=== PATIENT | male | born 1970 | race Hispanic/Latino ===

== ENCOUNTER 2016-12-19 14:49 | Emergency (ER) | payer SELFPAY ==
[~2016-12-19] VITALS: Ht 160 cm; Wt 72.7 kg
[~2016-12-19 14:49] MED LIST: ANXIETY MED PO; METF1000 PO; OMPR20CCR PO
[2016-12-19 14:55] VITALS: BP 120/78; PULSE 92; RESP 14; O2SAT 98
[2016-12-19 15:26] LABS: BASOPHILS % (AUTO) 0.5 % (0-3); EOSINOPHILS % (AUTO) 4.1 % (0-5); MONOCYTES % (AUTO) 5.2 % (4-12); Mean Corpuscular Hemoglobin 30.8 pg (27.0-35.0); Mean Corpuscular Volume 84.8 fL (81-100); NEUTROPHILS % (AUTO) 53.9 % (40-74); Platelet Count 340 bil/L (150-400)
--- NOTE | 2016-12-19 15:26 | ED.REPORT ---
HPI-Chest Pain 40 and Over Date of Service Dec 19, 2016 ED Provider: Dale Almodovar MD The patient is a [place] speaking 46 year old male w/ a hx of DM type II, hyperlipidemia, alcohol and meth abuse who presents to the ED due to sudden onset, 07/12, chest pain that began 4-5 hours ago. The patient's roommate translates for the patient. The pain woke him up from his sleep and is described as, "achy." He saw his PCP, Dr. Douglas Russell, for similar symptoms in the past, at which time the pain was attributed to poor blood sugar level monitoring. Today, he also c/o SOB. Pt last consumed alcohol 2 hrs [employer] but his speech is clear at the ED. Previous to this episode, he had been sober for 4 months, since . He was feeling very anxious today and decided to have a drink. Pt reports that his last methamphetamine use was 8 months ago. Nursing Notes Stated Complaint: CHEST PAIN Chief Complaint: Dysrhythmia/Cardiac Nursing Notes Reviewed: Yes Allergies: Coded Allergies: Penicillins (Unverified Allergy, Unknown, 12/19/16) Scheduled Clotrimazole 1% (Clotrimazole 1%) 30 Ml Solution 1 APPLIC TOPICAL BID Insuln Asp Prt/Insulin Aspart (NovoLOG 70/30 U100 Insulin Flexpen) 100 Unit/Ml Unit 10 UNIT SUBQ BID Lovastatin (Lovastatin) 40 Mg Tablet 40 MG PO HS Metformin HCl (Metformin HCl ER) 1,000 Mg [id number] 1,000 MG PO BID Metformin-Expunged Drug, Do Not Renew! 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 Arrived By: Walk-in Sudden in Onset?: Yes Onset Occurred: 1 - 4 hours ago Context of Onset: Sleeping Symptom Duration: Since onset Location: : Chest left Radiation: : Does not radiate Severity: Current: Mild Recent Healthcare: No recent hospitalization Similar Sx Previous: Yes Past Medical History Past Medical History Reports: Diabetes mellitus, Hyperlipidemia Past Surgical History denies Smoking History Current Every Day Smoker Social History Alcohol Use: "Social" Drug Use: In recovery, Meth Other Social History: Good social support, , Local resident Ambulatory Status Independent Review of Systems Review of Systems Note: smells of EtOH speech is clear Respiratory: Reports: Shortness of breath Cardiovascular: Reports: Chest pain Complete sys rev & neg: except as marked. Physical Exam Physical Exam Notes: Initial Vital Signs Vital Signs (First) Date Time Temp Pulse Resp B/P Pulse Ox O2 Delivery O2 Flow Rate FiO2 12/19/16 14:55 36.0 92 14 120/78 98 Room Air Initial VS: Reviewed Head / Eyes: Atraumatic, Normocephalic, PERRL ENT: Mucous membranes moist, Conjunctiva normal, No scleral icterus Neck: Supple, Non-tender, Full range of motion Back: No CVA tenderness Extremities: Vascular intact, Neuro intact, No swelling, No tenderness Skin: Warm, Dry, No cyanosis General/Constitutional: Awake, Cooperative alochol on breath speech is clear Respiratory / Chest: Atraumatic, Breath sounds NL, Breath sounds = bilat, No respiratory distress, No rales, No rhonchi, No wheezing mild chest wall tenderness Cardiovascular: Heart rate NL, Regular rhythm, Heart sounds NL, No gallop, No murmurs, No rubs Abdomen: BS normoactive mild epigastric tenderness Interpretation & Diagnostics Lab Results Interpretation Result Diagram: 12/19/16 1500 12/19/16 1500 Test 12/19/16 15:00 12/19/16 17:12 White Blood Count 13.1th/mm3 (3.8-10.1) Red Blood Count 5.52mil/mm3 (4.40-5.80) Hemoglobin 17.0g/dL (13.8-17.2) Hematocrit 46.8% (41.0-50.0) Mean Corpuscular Volume 84.8fL (81-100) Mean Corpuscular Hemoglobin 30.8pg (27.0-35.0) Mean Corpuscular Hemoglobin Concent 36.3% (32.0-37.0) Red Cell Distribution Width 12.3% (12.3-15.4) Platelet Count 340bil/L (150-400) Neutrophils (%) (Auto) 53.9% (40-74) Lymphocytes (%) (Auto) 36.1% (14-46) Monocytes (%) (Auto) 5.2% (4-12) Eosinophils (%) (Auto) 4.1% (0-5) Basophils (%) (Auto) 0.5% (0-3) Sodium Level 138mEq/L (134-144) Potassium Level 4.2mEq/L (3.5-5.2) Chloride Level 100mEq/L (97-108) Carbon Dioxide Level 17mmol/L (18-29) Blood Urea Nitrogen 12mg/dL (6-24) Creatinine 0.80mg/dL (0.76-1.27) Estimat Glomerular Filtration Rate 111mL/min (>59) Glucose Level 217mg/dL (60-99) Calcium Level 9.1mg/dL (8.5-10.1) Magnesium Level 2.2mg/dL (1.6-2.6) Total Bilirubin 0.3mg/dL (0.0-1.2) Aspartate Amino Transf (AST/SGOT) 24U/L (0-50) Alanine Aminotransferase (ALT/SGPT) 30U/L (0-44) Alkaline Phosphatase 111U/L (25-150) Pro-B-Type Natriuretic Peptide 8.68pg/mL (0-121) Total Protein 7.5g/dL (6.4-8.4) Albumin 4.1g/dL (3.4-5.0) Hold Yancey Top Tube Received (Received) Alcohols 258mg/dL (0-10) Troponin T < 0.010ug/L (0.0-0.011) Lipase 28U/L (13-60) X-Ray Chest Interpretation Chest Xray Interpretation: IMPRESSION: No acute cardiopulmonary disease. Dictated by: Olivia Zavala M.D. on 12/19/2016 at 15:44 Approved by: Olivia Zavala M.D. on 12/19/2016 at 15:45 View: Portable Interpretation / Wet Read by: Interpret - Radiologist Re-Eval/Medical Decision Re-Evaluation/Progress Note: plan to check for pancreatitis and heart problems. Counseled Regarding: Diagnosis, Lab results, Need for follow-up, When/why to return to ED Discharge & Departure Primary Impression: Chest pain Chest pain type: other chest pain Qualified Code: R07.89 - Other chest pain Additional Impression: Alcohol intoxication Complication of substance-induced condition: uncomplicated Qualified Code: F10.120 - Alcohol abuse with intoxication, uncomplicated Disposition: Home Discharge Condition All VS Reviewed: Yes Condition: Stable Additional Instructions: Your Emergency Department evaluation included interview, examination labs, ecg and chest x-ray. No serious cause for chest pain is found. it is safe for you to go home and follow up with primary care regarding your chest pain. It is very important that you do not drink alcohol. Return to ED for increasing chest pain, shortness of breath. continue previous home medications. Referrals: Douglas Russell MD Attestation Portion of this note were transcribed by Karey Apodaca. I, Dr. Almodovar, personally performed the history, physical exam, and medical decision-making: I reviewed and confirmed the accuracy for the information in the transcribed note. Signed by: eliza Ferris, 12/19/16 1900 copies to: Douglas Russell MD, Donald L MD Dec 19, 2016 15:26 Karey Apodaca Dec 19, 2016 16:39
--- NOTE | 2016-12-19 15:47 | DRSVH ---
PROCEDURE: X-RAY CHEST ONE VIEW, PORTABLE ([id number]) INDICATIONS: Chest pain TECHNIQUE: One view of the chest was acquired. COMPARISON: [facility], , CHEST 1VW (PORTABLE), 12/19/2011, 3:32. FINDINGS: Surgical changes and devices: None. Lungs and pleura: No pleural effusions or pneumothorax. Lungs are clear. Mediastinum: Mediastinal contours appear normal. Heart size is normal. Bones and chest wall: No suspicious bony lesions. Overlying soft tissues appear unremarkable. IMPRESSION: No acute cardiopulmonary disease. Dictated by: Olivia Zavala M.D. on 12/19/2016 at 15:44 Approved by: Olivia Zavala M.D. on 12/19/2016 at 15:45
[2016-12-19 15:50] LABS: Magnesium 2.2 mg/dL (1.6-2.6)
[2016-12-19 15:55] LABS: TROPONIN T < 0.010 ug/L (0.0-0.011)
[2016-12-19] MEDS ORDERED: 0.9% Sodium Chloride 1,000 ML IV ONE (16:40)
[2016-12-19] MEDS ORDERED: CLOT30SO TOPICAL (17:15)
[2016-12-19] MEDS ORDERED: LOVA40TA PO (17:15)
[2016-12-19] MEDS ORDERED: METF-778 PO (17:15)
[2016-12-19] MEDS ORDERED: INSU3INS3 SUBQ (17:15)
[2016-12-19 17:53] LABS: Lipase 28 U/L (13-60)
[2016-12-19 17:54] LABS: TROPONIN T < 0.010 ug/L (0.0-0.011)
[2016-12-19 19:32] VITALS: BP 106/58; PULSE 91; RESP 16; O2SAT 96
== END 2016-12-19 19:37 | disposition home or self-care (01) ==
LOC: SED 14:49 → EDUNIT# 14:49 → SED 19:37
DX: R07.89 Other chest pain (principal); F10.120 Alcohol abuse with intoxication, uncomplicated; E11.9 Type 2 diabetes mellitus without complications; E78.5 Hyperlipidemia, unspecified; Z79.4 Long term (current) use of insulin; Z79.84 Long term (current) use of oral hypoglycemic drugs; F17.200 Nicotine dependence, unspecified, uncomplicated; Z88.0 Allergy status to penicillin
CPT/HCPCS: 36415; 71010; 80053; 81002; 82075; 82948; 83690; 83735; 83880; 84484; 85025; 93005; 96361; 96374; 99285; G0480; J1885; J7030

== ENCOUNTER 2017-05-07 00:07 | Emergency (ER) | payer SELFPAY ==
[~2017-05-07] VITALS: Ht 170.2 cm; Wt 77.3 kg
[~2017-05-07 00:07] MED LIST changes: -ANXIETY MED PO; +CLOT30SO TOPICAL; +INSU3INS3 SUBQ; +LOVA40TA PO; +METF-778 PO; -OMPR20CCR PO
[2017-05-07 00:12] VITALS: BP 119/70; PULSE 101; RESP 33; O2SAT 100
--- NOTE | 2017-05-07 00:33 | ED.REPORT ---
HPI-Dyspnea / Wheezing Date of Service May 07, 2017 ED Provider: Jose Selby MD A 46 year old male with a history of diabetes mellitus type II, hyperlipidemia, alcohol and meth abuse presents to the ED with dyspnea that began this afternoon. Patient reportedly contacted family after he began to experience sudden onset shortness of breath and sharp chest pain. He admits to EtOH and cocaine use this evening. His BS was recorded in the 400's this evening. Patient was recently seen in the ED in 12/2016 for similar chest pain. Nursing Notes Stated Complaint: DIFFICULTY BREATHING Chief Complaint: Respiratory Distress Nursing Notes Reviewed: Yes Allergies: Coded Allergies: Penicillins (Unverified Allergy, Unknown, 12/19/16) Scheduled Clotrimazole 1% (Clotrimazole 1%) 30 Ml Solution 1 APPLIC TOPICAL BID Insuln Asp Prt/Insulin Aspart (NovoLOG 70/30 U100 Insulin Flexpen) 100 Unit/Ml Unit 10 UNIT SUBQ BID Lovastatin (Lovastatin) 40 Mg Tablet 40 MG PO HS Metformin HCl (Metformin HCl ER) 1,000 Mg [id number] 1,000 MG PO BID Metformin-Expunged Drug, Do Not Renew! (Metformin-Expunged Drug, Do Not Renew!) 1,000 Mg Tablet 1,000 MG PO BID General Time Seen by MD: 00:21 Chief Complaint Shortness of breath Hx Obtained From: Patient Arrived By: Walk-in Sudden in Onset?: No Onset Occurred: 1 - 4 hours ago Symptom Duration: Since onset Location: : Chest left: Chest right Quality: Sharp Radiation: : Does not radiate Severity: Current: Mild Severity: Maximum: Moderate Associated with: Reports: Chest pain Pertinent Negative: Pt denies other symptoms Recent Healthcare: No recent hospitalization, Recent doctor visit Past Medical History Past Medical History Diabetes Mellitus Hyperlipidemia Past Surgical History None reported. Smoking History Current Every Day Smoker Social History Alcohol Use: 1-3 per week Drug Use: Cocaine, Meth Other Social History: Good social support, , Local resident Ambulatory Status Independent Review of Systems Respiratory: Reports: Shortness of breath Cardiovascular: Reports: Chest pain Complete sys rev & neg: except as marked. Physical Exam Initial Vital Signs Vital Signs (First) Date Time Temp Pulse Resp B/P Pulse Ox O2 Delivery O2 Flow Rate FiO2 05/07/17 00:12 36.9 101 33 119/70 100 Room Air Initial VS: Reviewed, Vital signs abnormal Head / Eyes: Atraumatic, Normocephalic, PERRL Extremities: Vascular intact, Neuro intact, No swelling, No tenderness Skin: Warm, Dry, No cyanosis Neurologic: Alert, Oriented, Nonfocal Psychiatric: Mood/affect normal, Behavior normal, Normal thought content General/Constitutional: Awake, Alert, No acute distress Neck: Atraumatic, Supple Respiratory / Chest: Atraumatic, Breath sounds NL, Breath sounds = bilat, No respiratory distress Cardiovascular: Heart rate NL, Regular rhythm, Heart sounds NL, Peripheral circulation NL, Pulses = bilaterally Abdomen: Atraumatic, Soft Interpretation & Diagnostics Lab Results Interpretation Result Diagram: 05/07/17 0114 05/07/17 0114 Test 05/07/17 00:41 05/07/17 01:14 05/07/17 01:28 Hold Yancey Top Tube Received (Received) White Blood Count 9.0th/mm3 (3.8-10.1) Red Blood Count 4.93mil/mm3 (4.40-5.80) Hemoglobin 15.8g/dL (13.8-17.2) Hematocrit 42.4% (41.0-50.0) Mean Corpuscular Volume 86.0fL (81-100) Mean Corpuscular Hemoglobin 32.0pg (27.0-35.0) Mean Corpuscular Hemoglobin Concent 37.3% (32.0-37.0) Red Cell Distribution Width 12.1% (12.3-15.4) Platelet Count 245bil/L (150-400) Neutrophils (%) (Auto) 51.3% (40-74) Lymphocytes (%) (Auto) 37.2% (14-46) Monocytes (%) (Auto) 5.9% (4-12) Eosinophils (%) (Auto) 4.9% (0-5) Basophils (%) (Auto) 0.6% (0-3) D-Dimer < 0.50mg/L FEU (<0.50) Sodium Level 132mEq/L (134-144) Potassium Level 3.7mEq/L (3.5-5.2) Chloride Level 93mEq/L (97-108) Carbon Dioxide Level 20mmol/L (18-29) Blood Urea Nitrogen 18mg/dL (6-24) Creatinine 0.80mg/dL (0.76-1.27) Estimat Glomerular Filtration Rate 110mL/min (>59) Glucose Level 429mg/dL (60-99) Calcium Level 9.1mg/dL (8.5-10.1) Total Bilirubin 0.4mg/dL (0.0-1.2) Aspartate Amino Transf (AST/SGOT) 24U/L (0-50) Alanine Aminotransferase (ALT/SGPT) 31U/L (0-44) Alkaline Phosphatase 109U/L (25-150) Troponin T 0.010ug/L (0.0-0.011) Pro-B-Type Natriuretic Peptide 11.22pg/mL (0-121) Total Protein 7.1g/dL (6.4-8.4) Albumin 3.8g/dL (3.4-5.0) Ketones Negative (Negative) Urine Color Straw (YELLOW) Urine Appearance Clear (CLEAR,HAZY) Urine pH 5.0 (5.0-8.0) Urine Specific [place] 1.011 (1.003-1.035) Urine Protein Tracemg/dL (NEG,TRACE) Urine Glucose (UA) >1000mg/dL (NEGATIVE) Urine Ketones Negativemg/dL (NEGATIVE) Urine Occult Blood Trace (NEGATIVE) Urine Nitrite Negative (NEGATIVE) Urine Bilirubin Negative (NEGATIVE) Urine Urobilinogen Normalmg/dL (NORMAL) Urine Leukocyte Esterase Negative (NEGATIVE) Urine RBC 0-2/hpf (0-2) Urine WBC 0-5/hpf (0-5) Urine Epithelial Cells Occasional/hpf (NONE-MOD) Urine Crystals None seen (NONE SEEN) Urine Bacteria Few/hpf (NONE-FEW) Urine Hyaline Casts None/lpf (NONE) Urine Granular Casts None seen (NONE SEEN) Urine Waxy Casts None seen (NONE SEEN) Urine Red Blood Cell Casts None seen (NONE SEEN) Urine White Blood Cell Casts None seen (NONE SEEN) Urine Mucus None seen (None Seen) Urine Trichomonas None seen (NONE SEEN) Urine Yeast None (NONE SEEN) Urinalysis Comment None Urine Culture Reflexed Not indicated Lab values outside NL range: no clinical significance. Lab Results Interpretation: Elevated blood glucose ECG Interpretation ECG Interpretation: Sinus Rhythm Rate [address] elevation, probable normal repol pattern Time: 00:15 Interpreted by: ED physician X-Ray Chest Interpretation Chest Xray Interpretation: No acute abnormalities Interpretation / Wet Read by: Wet read ED physician Re-Eval/Medical Decision Med Decision/Clinical Course 47-year-old with diabetes and chronic alcoholism presents with some chest pain. His ED workup for chest pain was negative to include a negative d-dimer, negative troponin, negative EKG and negative chest x-ray. He received fluids and insulin with improvement. He also has been drinking alcohol which may contribute to these issues. No evidence at this time of serious illness. Re-Evaluation/Progress : Time of Eval: 05:52 Patient Status: Condition improved, Pain improved Re-Evaluation/Progress Note: Patient is re-evaluated. His pain has improved upon recheck. He is informed of his reassuring results and diagnosis. The patient understands and agrees with the intended treatment plan to discharge. Counseled Regarding: Diagnosis, Lab results, Need for follow-up, When/why to return to ED Discharge & Departure Impression: Primary Impression: Chest pain Chest pain type: unspecified Qualified Code: R07.9 - Chest pain, unspecified Additional Impressions: Alcohol intoxication Complication of substance-induced condition: uncomplicated Qualified Code: F10.120 - Alcohol abuse with intoxication, uncomplicated Hyperglycemia Disposition: Home Discharge Condition All VS Reviewed: Yes Condition: Improved Patient Instructions: Chest Pain (ED), Dyspnea (ED) Additional Instructions: No evidence of serious heart or lung disease. No blood clots, no pneumonia, no heart attack, etc. Avoid alcohol. Drink plenty of other fluids. Watch your diabetes closely. Referrals: Douglas Russell MD Scribe Attestation Portions of this note were transcribed by Clint Cardenas. I, Dr. Selby personally performed the history, physical exam and medical decision-making; I reviewed and confirmed the accuracy of the information in the transcribed note. Jose Selby MD May 07, 2017 00:33 CLINT CARDENAS May 07, 2017 00:44
[2017-05-07 00:54] VITALS: BP 118/59; PULSE 100; RESP 24; O2SAT 99
[2017-05-07] MEDS ORDERED: Ketorolac 15 mg/mL Inj IVPUSH ONE (00:55)
[2017-05-07 01:17] VITALS: BP 120/57; PULSE 97; RESP 18; O2SAT 92
[2017-05-07 01:17] LABS: EOSINOPHILS % (AUTO) 4.9 % (0-5); MONOCYTES % (AUTO) 5.9 % (4-12)
[2017-05-07 01:33] LABS: BASOPHILS % (AUTO) 0.6 % (0-3); NEUTROPHILS % (AUTO) 51.3 % (40-74); Platelet Count 245 bil/L (150-400)
[2017-05-07 01:35] LABS: APPEARANCE,URINE CLEAR (CLEAR,HAZY); COLOR,URINE STRAW (YELLOW)
[2017-05-07 01:36] LABS: OCCULT BLOOD,URINE TRACE (NEGATIVE); UROBILINOGEN,URINE NORMAL (NORMAL)
[2017-05-07 01:54] LABS: TROPONIN T 0.01 ug/L (0.0-0.011)
[2017-05-07] MEDS ORDERED: 0.9% Sodium Chloride 1,000 ML IV ONE (03:00)
[2017-05-07] MEDS ORDERED: Insulin Human REGular-Omnicell 100 Unit/mL SUBQ ONE (03:00)
[2017-05-07 03:14] VITALS: BP 102/48; PULSE 92; RESP 15; O2SAT 95
--- NOTE | 2017-05-07 03:28 | ABG ---
DateTimeAnalyzed 03:22:00 -_ pH ____7.350 - pCO2 ___39.7__ -mmHg pO2 ___99.1__ -mmHg HCO3- ___21.4__ -mmol/L ABE ___-3.4__ -mmol/L tHb ___14.9__ -g/dL O2Hb ___93.6__ -% COHb ____2.9__ -% MetHb ____0.8__ -% sO2 ___97.2__ -% FIO2 ___21.0__ -% Drawn By LT - Date/Time Notified____ 03:28:00 -_ Notified By LT - Notified Whom DR LEIBRAND - B 754 -mmHg tO2 ___19.7__ -Vol% Darrel test N/A -
[2017-05-07 04:23] VITALS: BP 100/55; PULSE 96; RESP 18; O2SAT 93
[2017-05-07 06:09] VITALS: BP 112/61; PULSE 97; RESP 14; O2SAT 96
--- NOTE | 2017-05-07 08:39 | DRSVH ---
PROCEDURE: X-RAY CHEST ONE VIEW, PORTABLE ([id number]) INDICATIONS: dyspnea TECHNIQUE: One view of the chest was acquired. COMPARISON: [facility], CR, XR CHEST 1VW (PORTABLE), [facility]19[facility]2016[facility] 15[facility]14[facility], 3:32. FINDINGS: Surgical changes and devices: None. Lungs and pleura: No pleural effusions or pneumothorax. Lungs are abnormal with reduced inspiration but no definite pneumonia. Mediastinum: Mediastinal contours appear normal. Heart size is normal. Bones and chest wall: No suspicious bony lesions. Overlying soft tissues appear unremarkable. IMPRESSION: Reduced inspiratory line, mild right lung base atelectasis, no pneumonia found. Dictated by: David Vazquez M.D. on 05/07/2017 at 8:36 Approved by: David Vazquez M.D. on 05/07/2017 at 8:36
== END 2017-05-07 06:00 | disposition home or self-care (01) ==
LOC: SED 00:07
DX: R07.9 Chest pain, unspecified (principal); F10.120 Alcohol abuse with intoxication, uncomplicated; E11.65 Type 2 diabetes mellitus with hyperglycemia; E78.5 Hyperlipidemia, unspecified; F17.200 Nicotine dependence, unspecified, uncomplicated; Z79.4 Long term (current) use of insulin; Z79.84 Long term (current) use of oral hypoglycemic drugs; Z88.0 Allergy status to penicillin
CPT/HCPCS: 36415; 71010; 80053; 81000; 81002; 82009; 82075; 82375; 82803; 82948; 83880; 84484; 85025; 85378; 93005; 96361; 96372; 96374; 99285; J1815; J1885; J7030